=== PATIENT | female | born 1955 ===

== ENCOUNTER 2016-11-28 19:47 | Emergency (ER) | payer OTHER ==
[~2016-11-28] VITALS: Ht 165.1 cm; Wt 56.0 kg
[2016-11-28 19:51] VITALS: Ht 165.1 cm; Wt 56.0 kg
[2016-11-28] MEDS ORDERED: KETOROLAC TROMETHAMINE 30 MG/ML VIAL IV STA (20:08)
[2016-11-28] MEDS ORDERED: SODIUM CHLORIDE 0.9% 1000ML 1,000 ML IV STA (20:08)
[2016-11-28 20:16] VITALS: O2SAT 99
[2016-11-28 20:38] LABS: BASO % 0.3 %; BASO ABS # 0.03 K/uL (0-0.2); EOS % 1.8 %; HEMATOCRIT 35.8 % (37-47); IG% 0.9 %; LYMPH % 25.5 %; LYMPH ABS # 2.63 K/uL (1.2-3.4); MEAN CORPUSCULAR HEMOGLOBIN 26.7 pg (25-34); MEAN PLATELET VOLUME 10.5 fL (7.4-10.4); MONO % 4.6 %; NEUT % 66.9 %; PLATELET COUNT 201 K/uL (130-400); RED BLOOD COUNT 4.42 M/uL (4.2-5.4); WHITE BLOOD COUNT 10.32 K/uL (4.8-10.8)
[2016-11-28] MEDS ORDERED: ASPI81TA28 PO (20:57)
[2016-11-28] MEDS ORDERED: VNTHFA/IN INH (20:57)
[2016-11-28] MEDS ORDERED: [UNRECOGNIZED DRUG - OTHER] INH (20:57)
[2016-11-28] MEDS ORDERED: MONT1TAB3 PO (20:57)
[2016-11-28] MEDS ORDERED: [UNRECOGNIZED DRUG - OTHER] PO (20:57)
[2016-11-28] MEDS ORDERED: FERR1TAB13 PO (20:57)
[2016-11-28] MEDS ORDERED: ESOM20CA PO (20:57)
[2016-11-28 20:58] LABS: ALT/SGPT 32 U/L (12-78); BLOOD UREA NITROGEN 6 mg/dl (7-18); CALCIUM 9.4 mg/dl (8.5-10.1); CARBON DIOXIDE 24 mmol/L (21-32); CHLORIDE 100 mmol/L (98-107); CREATININE 0.69 mg/dl (0.60-1.20); GLUCOSE 126 mg/dl (70-99); POTASSIUM 3.7 mmol/L (3.5-5.1); SODIUM 135 mmol/L (136-145)
[2016-11-28 21:03] LABS: URINE APPEARANCE CLEAR (CLEAR); URINE BILIRUBIN NEG (NEG); URINE COLOR YELLOW; URINE NITRITE NEG (NEG); URINE SPECIFIC GRAVITY 1.011 (1.000-1.030); UROBILINOGEN NEG (NEG); ZZUR CULT IF INDIC CLEAN CATCH NO
[2016-11-28 21:03] LABS: ALKALINE PHOSPHATASE 79 U/L (45-117); AST/SGOT 21 U/L (15-37)
[2016-11-28 21:07] LABS: MANUAL MICROSCOPIC REQUIRED? NO; REVIEW REQ? NO
--- NOTE | 2016-11-28 21:09 | DIAGNOSTIC IMAGING REPORT ---
CHEST ONE VIEW PORTABLE CLINICAL HISTORY: Pt c/o SOB dyspnea COMPARISON STUDY: No previous studies for comparison. FINDINGS: The bones soft tissues and hemidiaphragms are normal. The cardiomediastinal silhouette is normal. The lungs are clear. The pulmonary vasculature is normal. IMPRESSION: Negative chest. Mild emphysematous change The above report was generated using voice recognition software. It may contain grammatical, syntax or spelling errors. Electronically signed by: Hebert Menard M.D. 11/28/2016 9:07 PM Dictated Date/Time: 11/28/2016 9:07 PM
[2016-11-28 21:12] LABS: COMPLETE YES
[2016-11-28 21:26] LABS: LYME DISEASE AB IGG NEG (NEG); LYME DISEASE AB IGM NEG (NEG)
--- NOTE | 2016-11-28 21:52 | EMERGENCY ROOM VISIT NOTE ---
History Report prepared by Marilyn: Michael Hodge Under the Supervision of: Dr. Sourav Candelaria M.D. First contact with patient: 19:54 Chief Complaint: WEAKNESS Stated Complaint: POST FEVER WEAKNESS,SHAKING History of Present Illness The patient is a 61 year old female who presents to the Emergency Room with complaints of persistent generalized weakness beginning today. She does not speak Slovak and history was obtained from the patient's daughter. Per daughter , the patient had a fever with cold-like symptoms and a cough recently. She states that the patient's symptoms of illness have resolved, but the patient now feels very weak. She states that the patient has felt very shaky today as well. The patient's daughter does not believe the patient could have Malaria. The patient denies any abdominal pain. Source of History: patient, family (daughter) Onset: Today Position: other (generalized) Quality: other (weakness) Timing: other (persistent) Associated Symptoms: + fevers (resolved), + cough (resolved), No abdominal pain Note: The patient also complains of shakiness. Review of Systems See HPI for pertinent positives & negatives. A total of 10 systems reviewed and were otherwise negative. Past Medical & Surgical Medical Problems: (1) HTN (hypertension) Family History No pertinent family history stated. Social History Smoking Status: Never Smoker Marital Status: Current/Historical Medications Scheduled Albuterol Hfa (Ventolin Hfa), 2 PUFFS INH DIRECTED Aspirin (Aspirin Ec), 75 MG PO DAILY Esomeprazole Magnesium (Nexium), 20 MG PO DAILY Ferrous Sulfate (Kp Ferrous Sulfate), 325 MG PO DAILY Montelukast Sodium (Singulair), 10 MG PO DAILY [Larcadip], 10 MG PO BID [Senitide], 1 PUFF INH BID Allergies Coded Allergies: No Known Allergies (Unverified , 11/28/16) Physical Exam Vital Signs Date Time Temp Pulse Resp B/P (MAP) Pulse Ox O2 Delivery O2 Flow Rate FiO2 11/28/16 22:00 36.7 95 20 146/84 100 11/28/16 20:30 108 11/28/16 20:16 99 Room Air 11/28/16 19:51 36.6 140 18 155/91 97 Room Air Physical Exam GENERAL: Patient is a healthy-appearing well-nourished female HEAD: Normocephalic atraumatic EYES: Ocular movements intact pupils equal and react to light OROPHARYNX mucous membranes are moist no exudates present no erythema or edema present NECK: Supple no nuchal rigidity CHEST: Good equal expansion LUNGS: Clear and equal to auscultation CARDIAC: Normal S1 and S2 ABDOMEN: Soft nontender no guarding BACK: No CVA tenderness EXTREMITIES: No pain upon palpation normal muscle strength in all groups no clubbing cyanosis or edema NEURO: Patient is following commands and answering questions appropriately. Alert and oriented x3 Cranial Nerves 2-12 grossly intact Medical Decision & Procedures ER Provider Diagnostic Interpretation: X-ray results as stated below per interpretation by me and the radiologist: CHEST ONE VIEW PORTABLE FINDINGS: The bones soft tissues and hemidiaphragms are normal. The cardiomediastinal silhouette is normal. The lungs are clear. The pulmonary vasculature is normal. IMPRESSION: Negative chest. Mild emphysematous change The above report was generated using voice recognition software. It may contain grammatical, syntax or spelling errors. Electronically signed by: Hebert Menard M.D. Laboratory Results 11/28/16 20:21 Red Blood Count 4.42, Mean Corpuscular Volume 81.0, Mean Corpuscular Hemoglobin 26.7, Mean Corpuscular Hemoglobin Concent 33.0, Mean Platelet Volume 10.5, Neutrophils (%) (Auto) 66.9, Lymphocytes (%) (Auto) 25.5, Monocytes (%) (Auto) 4.6, Eosinophils (%) (Auto) 1.8, Basophils (%) (Auto) 0.3, Neutrophils # (Auto) 6.91, Lymphocytes # (Auto) 2.63, Monocytes # (Auto) 0.47, Eosinophils # (Auto) 0.19, Basophils # (Auto) 0.03 11/28/16 20:21 Test 11/28/16 20:21 11/28/16 20:39 White Blood Count 10.32 K/uL (4.8-10.8) Red Blood Count 4.42 M/uL (4.2-5.4) Hemoglobin 11.8 g/dL (12.0-16.0) Hematocrit 35.8 % (37-47) Mean Corpuscular Volume 81.0 fL (80-100) Mean Corpuscular Hemoglobin 26.7 pg (25-34) Mean Corpuscular Hemoglobin Concent 33.0 g/dl (32-36) Platelet Count 201 K/uL (130-400) Mean Platelet Volume 10.5 fL (7.4-10.4) Neutrophils (%) (Auto) 66.9 % Lymphocytes (%) (Auto) 25.5 % Monocytes (%) (Auto) 4.6 % Eosinophils (%) (Auto) 1.8 % Basophils (%) (Auto) 0.3 % Neutrophils # (Auto) 6.91 K/uL (1.4-6.5) Lymphocytes # (Auto) 2.63 K/uL (1.2-3.4) Monocytes # (Auto) 0.47 K/uL (0.11-0.59) Eosinophils # (Auto) 0.19 K/uL (0-0.5) Basophils # (Auto) 0.03 K/uL (0-0.2) RDW Standard Deviation 44.6 fL (36.4-46.3) RDW Coefficient of Variation 15.2 % (11.5-14.5) Immature Granulocyte % (Auto) 0.9 % Immature Granulocyte # (Auto) 0.09 K/uL (0.00-0.02) Red Blood Cell Morphology Unremarkable Anion Gap 11.0 mmol/L (3-11) Est Creatinine Clear Calc Drug Dose 73.8 ml/min Estimated GFR () 107.4 Estimated GFR (Non- 92.6 BUN/Creatinine Ratio 8.0 (10-20) Calcium Level 9.4 mg/dl (8.5-10.1) Total Bilirubin 0.3 mg/dl (0.2-1) Direct Bilirubin < 0.1 mg/dl (0-0.2) Aspartate Amino Transf (AST/SGOT) 21 U/L (15-37) Alanine Aminotransferase (ALT/SGPT) 32 U/L (12-78) Alkaline Phosphatase 79 U/L (45-117) Total Creatine Kinase 67 U/L (26-192) Creatine Kinase MB < 0.5 ng/ml (0.5-3.6) Creatine Kinase MB Ratio (0-3.0) Troponin I < 0.015 ng/ml (0-0.045) Total Protein 9.2 gm/dl (6.4-8.2) Albumin 3.9 gm/dl (3.4-5.0) Lyme Disease IgG Antibody NEG (NEG) Lyme Disease IgM Antibody NEG (NEG) Monoscreen NEG (NEG) Urine Color YELLOW Urine Appearance CLEAR (CLEAR) Urine pH 7.0 (4.5-7.5) Urine Specific [place] 1.011 (1.000-1.030) Urine Protein NEG (NEG) Urine Glucose (UA) NEG (NEG) Urine Ketones NEG (NEG) Urine Occult Blood NEG (NEG) Urine Nitrite NEG (NEG) Urine Bilirubin NEG (NEG) Urine Urobilinogen NEG (NEG) Urine Leukocyte Esterase NEG (NEG) Influenza Type A Antigen Neg for Influ A (NEG) Influenza Type B Antigen Neg for Influ B (NEG) Labs reviewed by ED physician. Medications Administered Medications (Trade) Dose Ordered Sig/Marycarmen Route Start Time Stop Time Status Last Admin Dose Admin Sodium Chloride 1,000 ml @ 999 mls/hr Q1H1M STAT IV 11/28/16 20:08 11/28/16 21:08 DC 11/28/16 20:58 999 MLS/HR Ketorolac Tromethamine (Toradol Inj) 30 mg NOW STAT IV 11/28/16 20:08 11/28/16 20:10 DC 11/28/16 21:00 30 MG ECG Indication: weakness Rate (beats per minute): 118 Rhythm: sinus tachycardia Findings: no acute ischemic change, no ectopy, other (Old inferior infarct) Comparison ECG Date: no prior available ED Course 1954: Past medical records reviewed. The patient was evaluated in room B9. A complete history and physical examination was performed. 2007: Ordered Toradol Inj 30 mg IV, Sodium Chloride 1000 ml @ 999 mls/hr. 2149: Upon reexamination the patient is resting comfortably. I discussed results and treatment plan with the patient. She verbalizes agreement and understanding. The patient is ready for discharge. Medical Decision Differential diagnosis: Etiologies such as metabolic, infection, hypo/hyperglycemia, electrolyte abnormalities, cardiac sources, intracerebral event, toxicologic, neurologic, as well as others were entertained. Blood Pressure Screening: Patient was found to have an elevated blood pressure and was referred to their primary care doctor for recheck and further treatment Medication Reconciliation: I attest that I have personally reviewed the patient' s current medication list This is a 61-year-old female who presents emergency department complaining of generalized weakness. The patient recently came to [facility] from [facility] and because of this I'm concerned about malaria as well as dengue fever. Smears were taken of the patient along with IgG IgM for dingue these will not be back for some time. In the meanwhile the patient does not have an elevation in her white blood cell count has a normal urine and has a normal chest x-ray. Her EKG reflects an old OR and the patient reports she had an OR approximately 20 years ago. Regardless she denies any chest pain or shortness of breath. She feels much better after Toradol and a normal saline bolus. I do feel based on these findings at the patient can be safely discharged home. I did discuss this with the patient who was in agreement with the treatment plan. Impression Primary Impression: Dehydration Scribe Attestation The scribe's documentation has been prepared under my direction and personally reviewed by me in its entirety. I confirm that the note above accurately reflects all work, treatment, procedures, and medical decision making performed by me. Departure Information Dispostion Home / Self-Care Referrals No Doctor, Assigned (PCP) Forms HOME CARE DOCUMENTATION FORM, IMPORTANT VISIT INFORMATION Patient Instructions ED Dehydration, My [facility] Additional Instructions You were found to have an elevated blood pressure today (>120 sytolic or >90 diastolic). Per medicare guidelines, you need to follow up with this blood pressure screening with your Primary Care Physician (PCP). For a new PCP call [phone]. Take 600 mg Ibuprofen every 6 hours Take 1000 mg Tylenol every 6 hours Increase fluid intake next 48 hours Culture results are usually available in approx 48 hours You have been examined and treated today on an emergency basis only. This is not a substitute for, or an effort to provide, complete comprehensive medical care. It is impossible to recognize and treat all injuries or illnesses in a single emergency department visit. It is therefore important that you follow up closely with your PCP. Call as soon as possible for an appointment. Thank you for your time and consideration. I look forward to speaking with you again soon. Please don't hesitate to call us if you have any questions.
[2016-11-28 22:00] VITALS: BP 146/84; PULSE 95; TEMP 36.7; O2SAT 100
[2016-11-28 22:57] LABS: INFLUENZA A PCR Neg for Influ A (NEG); INFLUENZA B PCR Neg for Influ B (NEG)
[2016-12-02 23:53] LABS: DENGUE FEVER IgG AB 4.26; DENGUE FEVER IgM AB 0.43
[2016-12-05 23:38] LABS: EHRLICHIA CHAFF IGG AB <1:64 (<1:64); EHRLICHIA CHAFF IGM AB <1:20 (<1:20)
== END 2016-11-28 22:02 | disposition home or self-care (01) ==
LOC: C.EDB 19:49
DX: E86.0 Dehydration (principal); I25.2 Old myocardial infarction; R00.0 Tachycardia, unspecified; I10 Essential (primary) hypertension; Z79.82 Long term (current) use of aspirin; Z79.899 Other long term (current) drug therapy

== ENCOUNTER → 2017-01-05 | Outpatient (CLI) | payer OTHER ==
[~2017-01-05] MED LIST: ASPI81TA28 PO; ESOM20CA PO; FERR1TAB13 PO; MONT1TAB3 PO; VNTHFA/IN INH; [UNRECOGNIZED DRUG - OTHER] INH; [UNRECOGNIZED DRUG - OTHER] PO
--- NOTE | 2017-01-05 14:58 | DIAGNOSTIC IMAGING REPORT ---
CHEST 2 VIEWS ROUTINE CLINICAL HISTORY: 61 years-old Female presenting with FEVER. TECHNIQUE: PA and lateral views of the chest were obtained. COMPARISON: 11/28/2016. FINDINGS: Atherosclerosis of aortic arch. Cardiac silhouette normal. Lungs and pleural spaces clear. Osseous structures normal. Upper abdomen normal. IMPRESSION: 1. No acute cardiopulmonary disease. Electronically signed by: Sathish Michelle M.D. 01/05/2017 2:57 PM Dictated Date/Time: 01/05/2017 2:56 PM
[2017-01-05 17:24] LABS: BASO % 0.6 %; BASO ABS # 0.06 K/uL (0-0.2); COMPLETE YES; EOS % 2.2 %; HEMATOCRIT 34.8 % (37-47); IG% 0.5 %; LYMPH % 18.1 %; LYMPH ABS # 1.81 K/uL (1.2-3.4); MEAN CELL VOLUME 82.3 fL (80-100); MEAN CORPUSCULAR HEMOGLOBIN 27.7 pg (25-34); MEAN CORPUSCULAR HGB CONC 33.6 g/dl (32-36); MONO % 4.4 %; NEUT % 74.2 %; PLATELET COUNT 213 K/uL (130-400); RED BLOOD COUNT 4.23 M/uL (4.2-5.4)
[2017-01-05 17:44] LABS: ALT/SGPT 28 U/L (12-78); BLOOD UREA NITROGEN 7 mg/dl (7-18); BUN/CREATININE RATIO 13.5 (10-20); CALCIUM 9.1 mg/dl (8.5-10.1); CARBON DIOXIDE 26 mmol/L (21-32); CHLORIDE 101 mmol/L (98-107); CREATININE 0.54 mg/dl (0.60-1.20); GLUCOSE 103 mg/dl (70-99); POTASSIUM 3.8 mmol/L (3.5-5.1); SODIUM 132 mmol/L (136-145)
[2017-01-05 17:54] LABS: ALB/GLOB RATIO 0.8 (0.9-2); ALKALINE PHOSPHATASE 76 U/L (45-117); AST/SGOT 18 U/L (15-37)
== END | disposition home or self-care (01) ==
LOC: C.RADBC 14:26
PROVIDERS: ATTEND Physician Assistant
DX: R50.9 Fever, unspecified (principal); R53.83 Other fatigue

== ENCOUNTER → 2017-03-30 | Outpatient (CLI) | payer OTHER | END | disposition home or self-care (01) | LOC: C.LABBC 12:06 | PROVIDERS: ATTEND Neuromusculoskeletal Medicine & OMM | DX: R53.83 Other fatigue (principal) ==